=== PATIENT | male | born 1985 | race African-American/Black ===

== ENCOUNTER 2020-02-18 09:41 | Emergency (ER) | payer OTHER ==
[~2020-02-18] VITALS: Ht 177.8 cm; Wt 59.0 kg
[~2020-02-18 09:41] MED LIST: NORCO 5-325 TA1 EACH PO; PENICILLIN VK500 MG PO
[2020-02-18 11:18] LABS: HEMATOCRIT 40.7 % (42.0-52.0); MCHC 31.8 g/dL (28.0-37.0); MCV 81.7 fL (80.0-100.0); RBC 4.99 mil/uL (4.50-6.00); RDW 14.6 % (10.5-14.5); WBC 4.7 thou/uL (4.0-11.0)
[2020-02-18 11:46] LABS: ALBUMIN 3.8 g/dL (3.4-5.0); BUN 9 mg/dL (7-18); CALCIUM 8.5 mg/dL (8.5-10.1); CO2 29 mmol/L (21-32); CREATININE 0.8 mg/dL (0.7-1.3); GLUCOSE 86 mg/dL (74-106); SALICYLATE < 2.8 mg/dL (2.8-20.0); SGOT 23 U/L (15-37); SGPT 31 U/L (30-65); TOTAL BILIRUBIN 0.5 mg/dL (<0.1-1.0); TOTAL PROTEIN 6.9 g/dL (6.4-8.2)
[2020-02-18 12:01] LABS: ANION GAP 6 mmol/L (7-16); CHLORIDE 103 mmol/L (98-107); POTASSIUM 3.9 mmol/L (3.5-5.1); SODIUM 138 mmol/L (136-145)
[2020-02-18 13:17] LABS: URINE BILIRUBIN NEGATIVE (Negative); URINE BLOOD NEGATIVE (Negative); URINE CLARITY CLEAR; URINE COLOR YELLOW; URINE GLUCOSE-RANDOM* NEGATIVE (Negative); URINE KETONES NEGATIVE (Negative); URINE LEUKOCYTES-REFLEX NEGATIVE (Negative); URINE NITRITE-REFLEX NEGATIVE (Negative); URINE PROTEIN (DIPSTICK) NEGATIVE (Negative)
[2020-02-18 13:27] LABS: AMP/METHAMP Negative (Negative); BARBITURATES Negative (Negative); BENZODIAZEPINES Negative (Negative); COCAINE Negative (Negative); METHADONE Negative (Negative); OPIATES Negative (Negative); PCP Negative (Negative)
[2020-02-20 02:42] VITALS: BP 109/72
== END 2020-02-20 02:43 ==
LOC: ER 09:41
PROVIDERS: Emergency Medicine Emergency Medical Services
DX: T25.221A Burn of second degree of right foot, initial encounter (principal); T25.222A Burn of second degree of left foot, initial encounter; F22 Delusional disorders; F29 Unspecified psychosis not due to a substance or known physiological condition; F17.210 Nicotine dependence, cigarettes, uncomplicated; Z59.0 Homelessness; X08.8XXA Exposure to other specified smoke, fire and flames, initial encounter; Y93.89 Activity, other specified; Y92.89 Other specified places as the place of occurrence of the external cause; Y99.8 Other external cause status